=== PATIENT | male | born 1980 | race Caucasian/White ===

== ENCOUNTER 2022-05-14 14:49 | Inpatient (IN) | payer OTHER ==
[~2022-05-14] VITALS: Ht 175.3 cm; Wt 86.2 kg
[2022-05-16] MEDS ORDERED: ADULT ASPIRIN81 MG PO (18:23)
[2022-05-16] MEDS ORDERED: TOPROL XL25 M1 PO (18:23)
== END 2022-05-16 18:00 | disposition home or self-care (01) | DRG 281 ==
LOC: ER 14:49 → MEDI 05-15 01:17
PROVIDERS: ADMIT Internal Medicine; ATTEND Internal Medicine
PROC: 4A12X4Z Monitoring of Cardiac Electrical Activity, External Approach (ICD-10-PCS; principal; 2022-05-15)
PROC: B246ZZZ Ultrasonography of Right and Left Heart (ICD-10-PCS; 2022-05-15)
DX: I21.4 Non-ST elevation (NSTEMI) myocardial infarction (principal); I47.1 Supraventricular tachycardia; Z20.822 Contact with and (suspected) exposure to COVID-19